=== PATIENT | female | born 1970 | race Caucasian/White ===

== ENCOUNTER 2017-02-15 16:00 | Emergency (ER) | payer BC ==
[2017-02-15 16:20] VITALS: BP 150/92
--- NOTE | 2017-02-15 18:53 | ED ---
blanka Tello Timothy, scribed for Adolfo Hensley MD on 02/15/17 at 1647 . Lower Extremity - HPI Summary HPI Summary: Ct Duke is a 46 yo female presenting to [facility] with 5/110 pain in her right leg, possibly a varicose vein rupture. She states she was going to the bathroom at 1500 when she realized that her pants were soaked with blood, and her leg was spurting blood. She has a pressure dressing on the area currently. her MHx includes hashimotos, cardiac ablation 2005, right leg nerve damage, asthma, bronchitis, cholecystectomy, fractures, claustrophobia. - History of Current Complaint Chief Complaint: EDExtremityLower Stated Complaint: LEG INJURY Time Seen by Provider: 02/15/17 16:34 Hx Obtained From: Patient Hx Last Menstrual Period: 02/28/15 Mechanism Of Injury: Unknown Onset of Pain: Immediate Onset/Duration: Minutes Severity Initially: Moderate Severity Currently: Moderate Pain Intensity: 5 Pain Scale Used: 0-10 Numeric Timing: Constant Location: Is Discrete @ - RLE Associated Signs And Symptoms: Positive: Other - bleeding - Allergies/Home Medications Allergies/Adverse Reactions: Allergies Allergy/AdvReac Type Severity Reaction Status Date / Time Latex Allergy Severe Anaphylatic Verified 03/10/16 09:03 Shock Morphine Allergy Intermediate Vomiting Verified 03/10/16 09:03 Penicillins Allergy Intermediate Rash Verified 03/10/16 09:03 EMLACREAM Allergy Severe LIP Uncoded 11/19/14 19:35 SWELLING CHLOROHEXADINE Allergy Intermediate Rash Uncoded 03/01/15 14:45 PMH/Surg Hx/FS Hx/Imm Hx Endocrine/Hematology History: Reports: Hx Thyroid Disease - hashimotos Denies: Hx Anticoagulant Therapy, Hx Diabetes, Hx Systemic Lupus Erythematosus, Other Endocrine/Hematological Disorders Cardiovascular History: Reports: Other Cardiovascular Problems/Disorders - SVT/ [id number] Denies: Hx Congestive Heart Failure, Hx Hypertension, Hx Pacemaker/ICD Respiratory History: Reports: Hx Asthma - Hx OF, INHALER IF SEASONS Denies: Other Respiratory Problems/Disorders - DENIES GI History: Denies: Other GI Disorders - HX NICOLE, GASTRIC BYPASS History: Denies: Hx Dialysis, Hx Renal Disease, Other Problems/Disorders Musculoskeletal History: Reports: Hx Back Problems, Other Musculoskeletal History - Back Surgeries/f/u with Dr. Ghosh Denies: Hx Rheumatoid Arthritis Sensory History: Reports: Hx Contacts or Glasses - GLASSES DAY OF SURGERY Denies: Hx Hearing Aid, Other Sensory Impairments Opthamlomology History: Reports: Hx Contacts or Glasses - GLASSES DAY OF SURGERY Denies: Other Sensory Impairments Neurological History: Reports: Hx Headaches - DAILY, Hx Nerve Disease - RT LEG NERVE DAMAGE Denies: Other Neuro Impairments/Disorders Psychiatric History: Denies: Hx Panic Disorder, Other Psychiatric Issues/Disorders - Cancer History Hx Chemotherapy: No - Surgical History Surgery Procedure, Year, and Place: 2009 GASTRIC BYPASS, [facility] [place]/2010 DISCECTOMY L4 ,[id number] GALLBLADDER,[id number] & 2009 REEL RECORDER 2008 ( NOT IN USE)-LOOP RECORDER [facility]-removal of benign mass in uterus Hx Anesthesia Reactions: No Infectious Disease History: No Infectious Disease History: Denies: Hx Clostridium Difficile, Hx Hepatitis, Hx Human Immunodeficiency Virus (HIV), Hx of Known/Suspected MRSA, Hx Shingles, Hx Tuberculosis, Hx Known/ Suspected VRE, Hx Known/Suspected VRSA, History Other Infectious Disease, Traveled Outside the in Last 30 Days - Social History Alcohol Use: None Substance Use Type: Reports: None Hx Tobacco Use: No Smoking Status (MU): Never Smoked Tobacco Have You Smoked in the Last Year: No Review of Systems Constitutional: Negative Eyes: Negative ENT: Negative Cardiovascular: Negative Respiratory: Negative Gastrointestinal: Negative Genitourinary: Negative Musculoskeletal: Other - bleeding from RLE with 5/10 pain Skin: Negative Neurological: Negative Psychological: Normal All Other Systems Reviewed And Are Negative: Yes Physical Exam - Summary Physical Exam Summary: VITAL SIGNS: Reviewed. GENERAL: Patient is a well-developed and obese female who is lying comfortable in the stretcher. Patient is not in any acute respiratory distress. HEAD AND FACE: No signs of trauma. No ecchymosis, hematomas or skull depressions. No sinus tenderness. EYES: PERRLA, EOMI x 2, No injected conjunctiva, no nystagmus. EARS: Hearing grossly intact. Ear canals and tympanic membranes are within normal limits. MOUTH: Oropharynx within normal limits. NECK: Supple, trachea is midline, no adenopathy, no JVD, no carotid bruit, no c- spine tenderness, neck with full ROM. CHEST: Symmetric, no tenderness at palpation LUNGS: Clear to auscultation bilaterally. No wheezing or crackles. CVS: Regular rate and rhythm, S1 and S2 present, no murmurs or gallops appreciated. ABDOMEN: Soft, non-tender. No signs of distention. No rebound no guarding, and no masses palpated. Bowel sounds are normal. EXTREMITIES: FROM in all major joints, no edema, no cyanosis or clubbing. NEURO: Alert and oriented x 3. No acute neurological deficits. Speech is normal and follows commands. SKIN: Dry and warm. There was a small varicose vein bleed on the RLE, but there is no active bleeding at this time. Multiple varicose veins in the bilateral lower extremities. There is no edema. Triage Information Reviewed: Yes Vital Signs On Initial Exam: Initial Vitals Temp Pulse Resp BP Pulse Ox 97.8 F 80 20 150/92 100 02/15/17 16:15 02/15/17 16:15 02/15/17 16:15 02/15/17 16:15 02/15/17 16:15 Vital Signs Reviewed: Yes Procedures - Procedure Summary Procedure Summary: Small varicose vein bleed, but at this time there is no active bleeding. I used surgicel with gauze and marisol bandage to bandage area. Pt tolerated procedure with no complaints. Diagnostics - Vital Signs Vital Signs Temp Pulse Resp BP Pulse Ox 02/15/17 16:15 97.8 F 80 20 150/92 100 - Laboratory Lab Statement: Any lab studies that have been ordered have been reviewed, and results considered in the medical decision making process. Re-Evaluation - Re-Evaluation First Eval Re-Evaluation Time: 16:50 Change: Unchanged Comment: Applied bandage to ruptured varicose vein. Second Eval Re-Evaluation Time: 17:34 Change: Unchanged Comment: Pt is still no longer bleeding, and is agreeable to be discharged. Lower Extremity Course/Dx - Course Assessment/Plan: Ct Duke is a 46 yo female presenting to [facility] with gushing blood and 5/10 pain from her RLE, possibly a varicose vein rupture. After clinical examination and application of a bandage, she will be discharged home with varicose vein bleed with appropriate instructions. The Pt is not having active bleeding at this point. I placed surgicel and bandage. Pt was observed for approximately 2 hours, and will be discharged with follow up from her PCP. Pt is A&Ox3 and hemodynamically stable. I discussed all the findings and test results with the patient. Patient was instructed to return to the emergency room immediately if any of the symptoms return or worsens. Plan of care was discussed with the patient and understands and agrees. All questions were answered at patient satisfaction. There were no further complaints or concerns. Lung exam before discharge: CTA B/L. Good air exchange. No wheezing or crackles heard. CVS: S1 and S2 present. No murmurs appreciated. Patient is alert and oriented x 3. Patient is hemodynamically stable. Patient will be discharged home with follow up PCP in the next 2-3 days - Diagnoses Differential Diagnosis/HQI/PQRI: Positive: Other - varicose vein rupture Provider Diagnoses: Bleeding from varicose vein Discharge - Discharge Plan Condition: Stable Disposition: HOME Patient Education Materials: Varicose Veins (ED) Forms: *Work Release Referrals: Tonia Travis MD [Primary Care Provider] - 2 Days Additional Instructions: Please follow up with you primary care physician regarding your visit to the emergency department today. Return to the emergency department with any new or recurring symptoms. The documentation as recorded by the blanka jensen Timothy accurately reflects the service I personally performed and the decisions made by me, Adolfo Hensley MD.
== END 2017-02-15 18:00 | disposition home or self-care (01) ==
LOC: ED 16:00
DX: I83.90 Asymptomatic varicose veins of unspecified lower extremity (principal); M79.604 Pain in right leg
CPT/HCPCS: 99282

== ENCOUNTER 2020-12-17 07:30 | Inpatient (IN) ==
[2020-12-31] MEDS ORDERED: Vancomycin 1,000 MG in NS 0.9% 250 ml 250 ML IVPB SCH
[2020-12-31] MEDS ORDERED: Lactated Ringers 1000 ml BAG 1,000 ML IV SCH (06:00)
[2020-12-31] MEDS ORDERED: Propofol 10 mg/ml 100 ML BTL 100 ML ONE ×2 (06:50→12:01)
[2020-12-31] MEDS ORDERED: Dexamethasone IV 4 MG/ML VIAL 1 ml VIAL ONE (07:08)
[2020-12-31] MEDS ORDERED: fentaNYL 250 mcg/5 ml 50 MCG/ML 5 ml VIAL (250 MCG) ONE (07:08)
[2020-12-31] MEDS ORDERED: Midazolam 2 mg/2 ml VIAL 1 mg/ml 2 ml VIAL (2 mg) ONE ×2 (07:08→08:28)
[2020-12-31] MEDS ORDERED: Ondansetron 4 mg VIAL 2 MG/ML 2 ml VIAL ONE (07:08)
[2020-12-31] MEDS ORDERED: Remifentanil 2 MG VIAL ONE ×3 (07:08→12:25)
[2020-12-31] MEDS ORDERED: Propofol 10 MG/ML 20 ML BTL ONE ×2 (07:08→13:49)
[2020-12-31] MEDS ORDERED: Phenylephrine IV 10 MG/ML 1 ml VIAL ONE (07:08)
[2020-12-31] MEDS ORDERED: Lidocaine 2% PF 5 ML VIAL ONE (07:08)
[2020-12-31] MEDS ORDERED: Succinylcholine 200 mg VIAL 20 mg/ml 10 ml VIAL (200 mg) ONE (07:08)
[2020-12-31] MEDS ORDERED: Bacitracin INJECTION (manuf dc) 50,000 UNITS ONE (07:14)
[2020-12-31] MEDS ORDERED: Rocuronium 50 mg VIAL 10 mg/ml 5 ml VIAL (50 mg) ONE (08:28)
[2020-12-31] MEDS ORDERED: Bupivacaine 0.25% SDV 30 ML ONE (08:28)
[2020-12-31] MEDS ORDERED: Lidocaine 1% VIAL 10 MG/ML VIAL ONE (08:50)
[2020-12-31] MEDS ORDERED: Propofol 10 mg/ml 100 ML BTL 200 ML ONE (08:53)
[2020-12-31] MEDS ORDERED: BUPIVACAINE **LIPOSOME/PF 13.3 MG/ML (266MG/ 20ML) VIAL (RESTRICTED) INFIL ONE (09:00)
[2020-12-31] MEDS ORDERED: DiMENhydriNATE IV 50 mg/ml 1 ml VIAL IV PUSH PRN (09:13)
[2020-12-31] MEDS ORDERED: Naloxone 0.4 mg VIAL 0.4 mg/ml 1 ml VIAL IV PRN (09:13)
[2020-12-31] MEDS ORDERED: HYDROmorphone 1 MG/1 ML SYRINGE ONE ×3 (12:48→14:49)
[2020-12-31] MEDS ORDERED: Acetaminophen IV 1 GM/100ML 100 ML ONE (13:29)
[2020-12-31] MEDS ORDERED: Magnesium Hydroxide LIQ 30 ML UDC PO PRN (14:23)
[2020-12-31] MEDS: HYDROmorphone 1 MG/1 ML SYRINGE IV PRN ×5 (14:53→16:36)
[2020-12-31] MEDS ORDERED: fentaNYL PATCH 75 MCG/HR 1 PATCH TRANSDERM SCH (15:00)
[2020-12-31] MEDS: fentaNYL PATCH 100 MCG/HR 1 PATCH TRANSDERM SCH ×2 (17:18→18:50)
[2020-12-31] MEDS: fentaNYL Patch Check Q Shift NOTE FOLLOW UP SCH (20:28)
[2021-01-01] MEDS: fentaNYL Patch Check Q Shift NOTE FOLLOW UP SCH ×3 (06:50→19:23)
[2021-01-01] MEDS: DULoxetine DR 60 mg CAP PO SCH (12:37)
[2021-01-01] MEDS ORDERED: Albuterol HFA INHALER 8 gm MDI INH PRN (14:41)
[2021-01-01] MEDS: Ondansetron 4 mg VIAL 2 MG/ML 2 ml VIAL IV PRN (20:55)
[2021-01-01] MEDS: Dexamethasone IV 4 MG/ML VIAL 1 ml VIAL IV SLOW PU SCH (21:58)
[2021-01-01] MEDS: Acetaminophen IV 1 GM/100ML 100 ML IVPB SCH (22:25)
[2021-01-02] MEDS: Dexamethasone IV 4 MG/ML VIAL 1 ml VIAL IV SLOW PU SCH ×2 (05:38→14:03)
[2021-01-02] MEDS: Acetaminophen IV 1 GM/100ML 100 ML IVPB SCH ×2 (05:39→14:07)
[2021-01-02] MEDS: fentaNYL Patch Check Q Shift NOTE FOLLOW UP SCH ×2 (07:04→19:21)
[2021-01-02] MEDS: DULoxetine DR 60 mg CAP PO SCH (12:38)
[2021-01-03] MEDS: fentaNYL Patch Check Q Shift NOTE FOLLOW UP SCH ×2 (06:54→18:50)
[2021-01-03] MEDS: DULoxetine DR 60 mg CAP PO SCH (12:06)
[2021-01-03] MEDS: fentaNYL PATCH 100 MCG/HR 1 PATCH TRANSDERM SCH (16:14)
[2021-01-03 16:33] LABS: BUN/Creatinine Ratio 33.3 (8-20); Calcium 8.2 mg/dL (8.6-10.3); EGFR African American 80.2 (>60); EGFR Non-African American 66.3 (>60); Magnesium 1.8 mg/dL (1.9-2.7); Potassium 3.7 mmol/L (3.5-5.0)
[2021-01-04] MEDS: Ondansetron 4 mg VIAL 2 MG/ML 2 ml VIAL IV PRN (01:41)
[2021-01-04] MEDS: fentaNYL Patch Check Q Shift NOTE FOLLOW UP SCH ×2 (06:52→19:05)
[2021-01-04] MEDS: DULoxetine DR 60 mg CAP PO SCH (11:54)
[2021-01-05] MEDS: fentaNYL Patch Check Q Shift NOTE FOLLOW UP SCH ×2 (07:20→19:12)
[2021-01-05] MEDS: DULoxetine DR 60 mg CAP PO SCH (12:31)
[2021-01-05] MEDS: Ondansetron 4 mg VIAL 2 MG/ML 2 ml VIAL IV PRN (18:01)
[2021-01-06] MEDS ORDERED: Ondansetron ODT 4 mg TAB 4 MG TAB PO PRN (00:07)
[2021-01-06] MEDS: fentaNYL Patch Check Q Shift NOTE FOLLOW UP SCH ×2 (07:14→19:16)
[2021-01-06] MEDS: DULoxetine DR 60 mg CAP PO SCH (12:01)
[2021-01-06] MEDS: fentaNYL PATCH 100 MCG/HR 1 PATCH TRANSDERM SCH (16:28)
[2021-01-07] MEDS: fentaNYL Patch Check Q Shift NOTE FOLLOW UP SCH ×3 (07:25→19:09)
[2021-01-07] MEDS ORDERED: Gadoteridol (CONTRAST) 279.3 MG/ML 10 ML IV ONE (13:52)
[2021-01-07] MEDS: DULoxetine DR 60 mg CAP PO SCH (14:36)
[2021-01-07] MEDS ORDERED: Ondansetron 4 mg VIAL 2 MG/ML 2 ml VIAL ONE (15:19)
[2021-01-07] MEDS ORDERED: Prochlorperazine 5 mg/ml 2 ml VIAL (10 mg) IV PRN (15:24)
[2021-01-07] MEDS ORDERED: fentaNYL PATCH 100 MCG/HR 1 PATCH TRANSDERM SCH (18:00)
[2021-01-08] MEDS: fentaNYL Patch Check Q Shift NOTE FOLLOW UP SCH (07:06)
[2021-01-08 07:30] VITALS: BP 114/67
[2021-01-09] MEDS ORDERED: fentaNYL PATCH 100 MCG/HR 1 PATCH TRANSDERM SCH (17:00)
== END 2021-01-08 09:45 | DRG 304 ==
LOC: AA 12-31 05:53 → SSU 12-31 14:23
PROVIDERS: ADMIT Neurological Surgery; ATTEND Neurological Surgery

== ENCOUNTER 2021-12-14 13:27 | Inpatient (IN) ==
[2021-12-14] MEDS ORDERED: Lorazepam PYXIS KEY PRN (13:39)
[2021-12-14] MEDS ORDERED: LORazepam 2 mg VIAL 1 ml IV PUSH ONE (13:39)
[2021-12-14] MEDS ORDERED: Furosemide 40 mg/4 ml IV VIAL IV ONE (13:40)
[2021-12-14 14:46] LABS: ABS Basophils 0.1 10^3/ul (0-0.2); ABS Eosinophils 0.1 10^3/ul (0-0.6); ABS Lymphocytes 2.2 10^3/ul (1.0-4.8); ABS Monocytes 0.7 10^3/ul (0-0.8); ABS Neutrophils 6.7 10^3/ul (1.5-7.7); Eosinophil % 0.9 %; Hematocrit 31 % (35-47); Hemoglobin 9.8 g/dL (12.0-16.0); Lymphocyte % 22.2 %; Mean Corpuscular HGB Conc 32 g/dL (31-36); Mean Corpuscular Hemoglobin 22 pg (27-31); Mean Corpuscular Volume 71 fL (80-97); Mean Platelet Volume 6.8 fL (7.4-10.4); Platelet Count 521 10^3/uL (150-450); Red Blood Count 4.37 10^6 /uL (3.70-4.87); Red Cell Distribution Width 19 % (10-15); White Blood Count 9.7 10^3/uL (3.5-10.8)
[2021-12-14 14:51] LABS: Activated Partial Thrombo Time 35.6 seconds (26.0-38.0); INR 0.85 (0.86-1.15)
[2021-12-14 15:19] LABS: Albumin 2.7 g/dL (3.2-5.2); Albumin/Globulin Ratio 1.4 (1-3); Calcium 7.9 mg/dL (8.6-10.3); Globulin 1.9 g/dL (2-4); Magnesium 2.7 mg/dL (1.9-2.7); Potassium 3.9 mmol/L (3.5-5.0); Total Bilirubin 0.5 mg/dL (0.2-1.0); Total Protein 4.6 g/dL (6.4-8.9); eGFR CKD-EPI 70.7 (>60)
[2021-12-14 15:32] LABS: TSH Ultra Thyroid Stim Horm 2.37 mcIU/mL (0.34-5.60)
[2021-12-14 16:11] LABS: High Sensitivity Troponin 1 Hr 6 pg/mL (<15)
[2021-12-14 16:40] LABS: Urine Appearance Clear; Urine Bilirubin Negative (Negative); Urine Blood Negative (Negative); Urine Color Yellow; Urine Glucose Negative (Negative); Urine Ketones Negative (Negative); Urine Nitrite Negative (Negative); Urine Protein Negative (Negative); Urine Specific Gravity 1.006 (1.002-1.030); Urine Urobilinogen Negative (Negative)
[2021-12-14 16:45] LABS: C Reactive Protein 10.44 mg/L (<8.01)
[2021-12-14] MEDS ORDERED: Albuterol HFA INHALER 8 gm MDI INH PRN (17:48)
[2021-12-14] MEDS ORDERED: fentaNYL PATCH 100 MCG/HR 1 PATCH TRANSDERM SCH ×3 (18:00→21:19)
[2021-12-14 18:10] LABS: PCO2 Arterial 33 mmHg (35-45); PO2 Arterial 93 mmHg (80-100)
[2021-12-14] MEDS: Enoxaparin 40 MG/0.4 ML SYR SUBCUT SCH (18:41)
[2021-12-14] MEDS ORDERED: HYDROmorphone 8mg TAB (NF) PO PRN (18:43)
[2021-12-14] MEDS ORDERED: PREGABALIN 75 MG PO SCH (21:00)
[2021-12-14] MEDS ORDERED: Iohexol 350 (CONTRAST) 500 ML MDV IV ONE (21:13)
[2021-12-14] MEDS: HYDROmorphone 8mg TAB (NF) PO PRN (23:19)
[2021-12-15 06:12] LABS: Calcium 7.7 mg/dL (8.6-10.3); Magnesium 2.1 mg/dL (1.9-2.7); Potassium 3.2 mmol/L (3.5-5.0); eGFR CKD-EPI 62.9 (>60)
[2021-12-15 06:18] LABS: ABS Basophils 0.1 10^3/ul (0-0.2); ABS Eosinophils 0.3 10^3/ul (0-0.6); ABS Lymphocytes 2.2 10^3/ul (1.0-4.8); ABS Monocytes 0.7 10^3/ul (0-0.8); Eosinophil % 3.1 %; Hematocrit 32 % (35-47); Hemoglobin 9.8 g/dL (12.0-16.0); Lymphocyte % 23.5 %; Mean Corpuscular HGB Conc 31 g/dL (31-36); Mean Corpuscular Hemoglobin 22 pg (27-31); Mean Corpuscular Volume 73 fL (80-97); Mean Platelet Volume 7.1 fL (7.4-10.4); Platelet Count 445 10^3/uL (150-450); Red Blood Count 4.36 10^6 /uL (3.70-4.87); Red Cell Distribution Width 19 % (10-15); White Blood Count 9.2 10^3/uL (3.5-10.8)
[2021-12-15 07:06] LABS: Albumin 2.5 g/dL (3.2-5.2); Albumin/Globulin Ratio 1.5 (1-3); Direct Bilirubin 0.1 mg/dL (0.03-0.18); Globulin 1.7 g/dL (2-4); Indirect Bilirubin 0.2 mg/dL (0.3-1.0); Total Bilirubin 0.3 mg/dL (0.2-1.0); Total Protein 4.2 g/dL (6.4-8.9)
[2021-12-15] MEDS: fentaNYL Patch Check Q Shift NOTE FOLLOW UP SCH ×2 (07:12→19:12)
[2021-12-15] MEDS: HYDROmorphone 8mg TAB (NF) PO PRN ×2 (07:44→20:19)
[2021-12-15] MEDS: DULoxetine DR 30 mg CAP PO SCH (07:50)
[2021-12-15] MEDS: DULoxetine DR 60 mg CAP PO SCH (07:50)
[2021-12-15] MEDS ORDERED: Potassium Chlor 20 meq TAB.ER PO ONE (10:23)
[2021-12-15 16:24] LABS: Free T3 3.3 pg/mL (2.5-3.9)
[2021-12-15 16:29] LABS: Free T4 0.92 ng/dL (0.61-1.12)
[2021-12-15] MEDS: Enoxaparin 40 MG/0.4 ML SYR SUBCUT SCH (20:22)
[2021-12-16] MEDS: HYDROmorphone 8mg TAB (NF) PO PRN ×3 (05:10→20:39)
[2021-12-16 06:00] LABS: ABS Eosinophils 0.3 10^3/ul (0-0.6); ABS Lymphocytes 1.8 10^3/ul (1.0-4.8); ABS Monocytes 0.5 10^3/ul (0-0.8); ABS Neutrophils 3.1 10^3/ul (1.5-7.7); Hematocrit 28 % (35-47); Hemoglobin 8.6 g/dL (12.0-16.0); Lymphocyte % 31.6 %; Mean Corpuscular HGB Conc 31 g/dL (31-36); Mean Corpuscular Hemoglobin 23 pg (27-31); Mean Corpuscular Volume 72 fL (80-97); Mean Platelet Volume 6.8 fL (7.4-10.4); Platelet Count 398 10^3/uL (150-450); Red Blood Count 3.84 10^6 /uL (3.70-4.87); Red Cell Distribution Width 19 % (10-15); White Blood Count 5.8 10^3/uL (3.5-10.8)
[2021-12-16 06:15] LABS: Calcium 7.8 mg/dL (8.6-10.3); Magnesium 1.8 mg/dL (1.9-2.7); Potassium 4.2 mmol/L (3.5-5.0); eGFR CKD-EPI 93.3 (>60)
[2021-12-16] MEDS: fentaNYL Patch Check Q Shift NOTE FOLLOW UP SCH ×2 (07:16→19:08)
[2021-12-16] MEDS ORDERED: Regadenoson 0.4 MG/5 ML SYRINGE ONE (08:43)
[2021-12-16] MEDS ORDERED: Aminophylline 25 MG/ML VIAL ONE (08:49)
[2021-12-16] MEDS ORDERED: Magnesium Sulfate 2 gm BAG 2 GM/50 ML BAG IVPB ONE (11:57)
[2021-12-16] MEDS ORDERED: Furosemide 40 mg/4 ml IV VIAL IV ONE (11:57)
[2021-12-16] MEDS: DULoxetine DR 30 mg CAP PO SCH (12:04)
[2021-12-16] MEDS: DULoxetine DR 60 mg CAP PO SCH (12:04)
[2021-12-16] MEDS: Enoxaparin 40 MG/0.4 ML SYR SUBCUT SCH (18:28)
[2021-12-17] MEDS: HYDROmorphone 8mg TAB (NF) PO PRN (06:13)
[2021-12-17 06:19] LABS: ABS Eosinophils 0.2 10^3/ul (0-0.6); ABS Lymphocytes 1.3 10^3/ul (1.0-4.8); ABS Monocytes 0.5 10^3/ul (0-0.8); ABS Neutrophils 4.1 10^3/ul (1.5-7.7); Eosinophil % 3.8 %; Hematocrit 27 % (35-47); Hemoglobin 8.3 g/dL (12.0-16.0); Lymphocyte % 20.8 %; Mean Corpuscular HGB Conc 31 g/dL (31-36); Mean Corpuscular Hemoglobin 22 pg (27-31); Mean Corpuscular Volume 72 fL (80-97); Mean Platelet Volume 6.9 fL (7.4-10.4); Platelet Count 435 10^3/uL (150-450); Red Blood Count 3.78 10^6 /uL (3.70-4.87); Red Cell Distribution Width 19 % (10-15); White Blood Count 6.1 10^3/uL (3.5-10.8)
[2021-12-17 06:27] LABS: Calcium 7.9 mg/dL (8.6-10.3); Magnesium 1.9 mg/dL (1.9-2.7); Potassium 4.3 mmol/L (3.5-5.0); eGFR CKD-EPI 96.3 (>60)
[2021-12-17] MEDS: fentaNYL Patch Check Q Shift NOTE FOLLOW UP SCH (07:02)
[2021-12-17] MEDS: DULoxetine DR 60 mg CAP PO SCH (08:57)
[2021-12-17] MEDS: DULoxetine DR 30 mg CAP PO SCH (08:57)
[2021-12-17 11:33] LABS: Ferritin 9.3 ng/mL (11-307)
[2021-12-17] MEDS ORDERED: Iron Sucrose 200 MG in NS 0.9% 100 ml BAG 100 ML IVPB ONE (13:00)
[2021-12-17 17:17] VITALS: BP 115/68
== END 2021-12-17 18:38 | disposition home or self-care (01) | DRG 144 ==
LOC: ED 13:27 → EDHOLD 13:27 → SUATTDRO 17:42 → MEDTELE 21:12
PROVIDERS: ADMIT Internal Medicine; ATTEND Hospitalist

== ENCOUNTER 2022-01-10 16:58 | Inpatient (IN) ==
[2022-01-10 23:46] LABS: Urine Appearance Cloudy; Urine Bilirubin Negative (Negative); Urine Blood Negative (Negative); Urine Color Yellow; Urine Glucose Negative (Negative); Urine Ketones Negative (Negative); Urine Nitrite Positive (Negative); Urine Protein Negative (Negative); Urine Specific Gravity 1.012 (1.002-1.030); Urine Urobilinogen Negative (Negative)
[2022-01-11 00:17] LABS: ABS Lymphocytes 1.6 10^3/ul (1.0-4.8); ABS Monocytes 0.8 10^3/ul (0-0.8); ABS Neutrophils 6.9 10^3/ul (1.5-7.7); Eosinophil % 0.4 %; Hematocrit 30 % (35-47); Hemoglobin 9.2 g/dL (12.0-16.0); Mean Corpuscular HGB Conc 31 g/dL (31-36); Mean Corpuscular Hemoglobin 23 pg (27-31); Mean Corpuscular Volume 74 fL (80-97); Mean Platelet Volume 7.2 fL (7.4-10.4); Nucleated Red Blood Cells % 0.1; Platelet Count 378 10^3/uL (150-450); Red Blood Count 4.02 10^6 /uL (3.70-4.87); Red Cell Distribution Width 20 % (10-15); White Blood Count 9.3 10^3/uL (3.5-10.8)
[2022-01-11 00:22] LABS: Urine Bacteria Absent (Absent); Urine Red Blood Cell Trace(0-2/hpf) (Absent); Urine White Blood Cell 2+(11-20/hpf) (Absent)
[2022-01-11 00:43] LABS: Albumin 2.2 g/dL (3.2-5.2); Albumin/Globulin Ratio 1.1 (1-3); Calcium 7.7 mg/dL (8.6-10.3); Potassium 3.5 mmol/L (3.5-5.0); Total Bilirubin 0.8 mg/dL (0.2-1.0); Total Protein 4.2 g/dL (6.4-8.9); eGFR CKD-EPI 76.4 (>60)
[2022-01-11] MEDS ORDERED: Enoxaparin 40 MG/0.4 ML SYR SUBCUT SCH (03:00)
[2022-01-11] MEDS ORDERED: Furosemide 40 mg/4 ml IV VIAL IV SLOW PU ONE (03:03)
[2022-01-11] MEDS ORDERED: Ondansetron ODT 4 mg TAB 4 MG TAB PO PRN (03:52)
[2022-01-11] MEDS ORDERED: Albuterol HFA INHALER 8 gm MDI INH PRN (03:52)
[2022-01-11 07:09] LABS: ABS Lymphocytes 1.8 10^3/ul (1.0-4.8); ABS Neutrophils 7.1 10^3/ul (1.5-7.7); Eosinophil % 0.3 %; Hematocrit 31 % (35-47); Hemoglobin 9.5 g/dL (12.0-16.0); Lymphocyte % 18.3 %; Mean Corpuscular HGB Conc 31 g/dL (31-36); Mean Corpuscular Hemoglobin 23 pg (27-31); Mean Corpuscular Volume 74 fL (80-97); Mean Platelet Volume 7.3 fL (7.4-10.4); Platelet Count 380 10^3/uL (150-450); Red Cell Distribution Width 19 % (10-15)
[2022-01-11 07:15] LABS: Calcium 7.6 mg/dL (8.6-10.3); Potassium 3.4 mmol/L (3.5-5.0); eGFR CKD-EPI 64.3 (>60)
[2022-01-11] MEDS: Calcium Citrate 200 mg TAB PO SCH ×3 (09:14→21:53)
[2022-01-11] MEDS: fentaNYL PATCH 100 MCG/HR 1 PATCH TRANSDERM SCH (09:18)
[2022-01-11 10:35] LABS: Vitamin D Total 25(OH) 52.7 ng/mL (20-50)
[2022-01-11 14:53] LABS: Urine Osmo 274 mOsm/kg (150-1150)
[2022-01-11] MEDS: Heparin DRIP 25,000 UNITS BAG 25,000 UNITS/500 ML BAG IV SCH (15:52)
[2022-01-11] MEDS: Heparin 5000 UNITS/ML 1 mL VIAL IV PRN (15:53)
[2022-01-11 19:22] LABS: Phosphorus 3.5 mg/dL (2.5-5.0)
[2022-01-11] MEDS: fentaNYL Patch Check Q Shift NOTE FOLLOW UP SCH (19:34)
[2022-01-11] MEDS ORDERED: PREGABALIN 75 MG PO SCH (21:00)
[2022-01-12 04:02] LABS: Hematocrit 28 % (35-47); Hemoglobin 8.8 g/dL (12.0-16.0); Mean Corpuscular HGB Conc 32 g/dL (31-36); Mean Corpuscular Hemoglobin 23 pg (27-31); Mean Corpuscular Volume 74 fL (80-97); Mean Platelet Volume 7.1 fL (7.4-10.4); Platelet Count 365 10^3/uL (150-450); Red Blood Count 3.76 10^6 /uL (3.70-4.87); Red Cell Distribution Width 20 % (10-15); White Blood Count 7.2 10^3/uL (3.5-10.8)
[2022-01-12 04:36] LABS: Calcium 7.3 mg/dL (8.6-10.3); Magnesium 1.6 mg/dL (1.9-2.7); Potassium 3.4 mmol/L (3.5-5.0)
[2022-01-12 06:01] LABS: ABS Lymphocytes 1.8 10^3/ul (1.0-4.8); ABS Monocytes 0.7 10^3/ul (0-0.8); ABS Neutrophils 4.6 10^3/ul (1.5-7.7); Eosinophil % 0.7 %; Lymphocyte % 24.6 %
[2022-01-12] MEDS: fentaNYL Patch Check Q Shift NOTE FOLLOW UP SCH ×2 (06:50→19:20)
[2022-01-12] MEDS ORDERED: Magnesium Sulfate 2 gm BAG 2 GM/50 ML BAG IV ONE (08:00)
[2022-01-12] MEDS: Calcium Citrate 200 mg TAB PO SCH ×3 (08:56→21:08)
[2022-01-12] MEDS ORDERED: Magnesium Sulfate 1 GM IV 1 GM/100 ML BAG IV ONE (09:30)
[2022-01-12] MEDS: Heparin DRIP 25,000 UNITS BAG 25,000 UNITS/500 ML BAG IV SCH (10:35)
[2022-01-12 13:51] LABS: Folate > 20.00 ng/mL (5.90-24.80)
[2022-01-12 13:52] LABS: Vitamin B12 488 pg/mL (180-914)
[2022-01-12] MEDS: Ondansetron 4 mg VIAL 2 MG/ML 2 ml VIAL IV PRN (15:49)
[2022-01-13 05:54] LABS: ABS Eosinophils 0.1 10^3/ul (0-0.6); ABS Lymphocytes 3.2 10^3/ul (1.0-4.8); ABS Monocytes 0.5 10^3/ul (0-0.8); Hematocrit 32 % (35-47); Lymphocyte % 40.9 %; Mean Corpuscular HGB Conc 31 g/dL (31-36); Mean Corpuscular Hemoglobin 24 pg (27-31); Mean Corpuscular Volume 75 fL (80-97); Mean Platelet Volume 7.3 fL (7.4-10.4); Nucleated Red Blood Cells % 0.1; Platelet Count 502 10^3/uL (150-450); Red Blood Count 4.28 10^6 /uL (3.70-4.87); Red Cell Distribution Width 20 % (10-15); White Blood Count 7.9 10^3/uL (3.5-10.8)
[2022-01-13 06:10] LABS: Calcium 7.9 mg/dL (8.6-10.3); Magnesium 2.1 mg/dL (1.9-2.7); eGFR CKD-EPI 67.4 (>60)
[2022-01-13] MEDS: Heparin DRIP 25,000 UNITS BAG 25,000 UNITS/500 ML BAG IV SCH (07:00)
[2022-01-13] MEDS: fentaNYL Patch Check Q Shift NOTE FOLLOW UP SCH ×2 (07:01→18:44)
[2022-01-13] MEDS: Calcium Citrate 200 mg TAB PO SCH ×3 (07:48→21:04)
[2022-01-13] MEDS ORDERED: Gadoteridol (CONTRAST) 279.3 MG/ML 10 ML IV ONE (14:50)
[2022-01-13 17:21] LABS: TSH Ultra Thyroid Stim Horm 13.68 mcIU/mL (0.34-5.60)
[2022-01-13 19:20] LABS: Copper Level 0.56 mcg/mL (0.75-1.45)
[2022-01-14] MEDS: Heparin DRIP 25,000 UNITS BAG 25,000 UNITS/500 ML BAG IV SCH (04:58)
[2022-01-14 06:00] LABS: Calcium 7.8 mg/dL (8.6-10.3); Magnesium 1.9 mg/dL (1.9-2.7); Potassium 3.8 mmol/L (3.5-5.0)
[2022-01-14 06:06] LABS: eGFR CKD-EPI 74.4 (>60)
[2022-01-14] MEDS: fentaNYL Patch Check Q Shift NOTE FOLLOW UP SCH ×2 (06:48→18:40)
[2022-01-14] MEDS: Heparin 5000 UNITS/ML 1 mL VIAL IV PRN (06:52)
[2022-01-14] MEDS: Ondansetron 4 mg VIAL 2 MG/ML 2 ml VIAL IV PRN ×2 (08:15→21:17)
[2022-01-14] MEDS: Calcium Citrate 200 mg TAB PO SCH ×3 (09:09→21:15)
[2022-01-14] MEDS: fentaNYL PATCH 100 MCG/HR 1 PATCH TRANSDERM SCH (09:37)
[2022-01-14] MEDS ORDERED: Iron Sucrose 200 MG in NS 0.9% 100 ml BAG 100 ML IVPB ONE (15:33)
[2022-01-15] MEDS: Heparin DRIP 25,000 UNITS BAG 25,000 UNITS/500 ML BAG IV SCH (03:01)
[2022-01-15 03:41] LABS: Hematocrit 30 % (35-47); Hemoglobin 9.1 g/dL (12.0-16.0); Mean Corpuscular HGB Conc 31 g/dL (31-36); Mean Corpuscular Hemoglobin 23 pg (27-31); Mean Corpuscular Volume 75 fL (80-97); Mean Platelet Volume 6.7 fL (7.4-10.4); Platelet Count 445 10^3/uL (150-450); Red Blood Count 3.95 10^6 /uL (3.70-4.87); Red Cell Distribution Width 21 % (10-15)
[2022-01-15 04:02] LABS: Calcium 7.7 mg/dL (8.6-10.3); Magnesium 1.8 mg/dL (1.9-2.7); Potassium 4.1 mmol/L (3.5-5.0)
[2022-01-15 04:07] LABS: eGFR CKD-EPI 97.9 (>60)
[2022-01-15] MEDS: fentaNYL Patch Check Q Shift NOTE FOLLOW UP SCH ×2 (06:58→18:56)
[2022-01-15] MEDS ORDERED: Potassium Chlor 20 meq TAB.ER PO ONE (09:26)
[2022-01-15] MEDS ORDERED: Magnesium Sulfate 2 gm BAG 2 GM/50 ML BAG IVPB ONE (09:26)
[2022-01-15] MEDS: Calcium Citrate 200 mg TAB PO SCH ×3 (11:51→21:35)
[2022-01-15] MEDS: Ondansetron 4 mg VIAL 2 MG/ML 2 ml VIAL IV PRN ×2 (17:08→23:36)
[2022-01-16] MEDS: Heparin DRIP 25,000 UNITS BAG 25,000 UNITS/500 ML BAG IV SCH (04:09)
[2022-01-16 06:28] LABS: Hematocrit 31 % (35-47); Hemoglobin 9.4 g/dL (12.0-16.0); Mean Corpuscular HGB Conc 30 g/dL (31-36); Mean Corpuscular Hemoglobin 23 pg (27-31); Mean Corpuscular Volume 76 fL (80-97); Mean Platelet Volume 7.1 fL (7.4-10.4); Platelet Count 559 10^3/uL (150-450); Red Blood Count 4.09 10^6 /uL (3.70-4.87); Red Cell Distribution Width 21 % (10-15); White Blood Count 12.6 10^3/uL (3.5-10.8)
[2022-01-16 06:45] LABS: Calcium 7.8 mg/dL (8.6-10.3); Magnesium 1.9 mg/dL (1.9-2.7); Potassium 3.7 mmol/L (3.5-5.0); eGFR CKD-EPI 62.9 (>60)
[2022-01-16] MEDS: fentaNYL Patch Check Q Shift NOTE FOLLOW UP SCH ×2 (07:42→19:15)
[2022-01-16] MEDS ORDERED: Potassium Chlor 20 meq TAB.ER PO ONE (08:58)
[2022-01-16 08:59] LABS: ABS Lymphocytes 2.2 10^3/ul (1.0-4.8); ABS Monocytes 0.7 10^3/ul (0-0.8); ABS Neutrophils 9.5 10^3/ul (1.5-7.7); Eosinophil % 0.3 %; Lymphocyte % 17.9 %
[2022-01-16 09:10] LABS: C Reactive Protein 6.19 mg/L (<8.01)
[2022-01-16] MEDS: Calcium Citrate 200 mg TAB PO SCH ×3 (09:40→20:48)
[2022-01-16 11:22] LABS: Albumin 1.8 g/dL (3.4-4.7); Albumin/Globulin Ratio 0.77; Gamma Globulin 0.3 g/dL (0.6-1.6); Total Protein(PEP) 4.1 g/dL (6.3 - 7.9)
[2022-01-16] MEDS ORDERED: Iron Sucrose 200 MG in NS 0.9% 100 ml BAG 100 ML IVPB ONE (18:30)
[2022-01-16] MEDS: Ondansetron 4 mg VIAL 2 MG/ML 2 ml VIAL IV PRN (20:19)
[2022-01-17] MEDS: Heparin DRIP 25,000 UNITS BAG 25,000 UNITS/500 ML BAG IV SCH (05:25)
[2022-01-17] MEDS: fentaNYL Patch Check Q Shift NOTE FOLLOW UP SCH ×2 (06:44→18:43)
[2022-01-17 07:28] LABS: Hematocrit 31 % (35-47); Hemoglobin 9.6 g/dL (12.0-16.0); Mean Corpuscular HGB Conc 31 g/dL (31-36); Mean Corpuscular Hemoglobin 24 pg (27-31); Mean Corpuscular Volume 77 fL (80-97); Mean Platelet Volume 7.1 fL (7.4-10.4); Platelet Count 501 10^3/uL (150-450); Red Blood Count 4.01 10^6 /uL (3.70-4.87); Red Cell Distribution Width 21 % (10-15); White Blood Count 17.3 10^3/uL (3.5-10.8)
[2022-01-17 07:40] LABS: Calcium 7.9 mg/dL (8.6-10.3); Magnesium 1.7 mg/dL (1.9-2.7); Potassium 4.2 mmol/L (3.5-5.0); eGFR CKD-EPI 90.5 (>60)
[2022-01-17] MEDS: Calcium Citrate 200 mg TAB PO SCH ×3 (08:49→20:55)
[2022-01-17] MEDS: fentaNYL PATCH 100 MCG/HR 1 PATCH TRANSDERM SCH (09:05)
[2022-01-17] MEDS ORDERED: Magnesium Sulfate 2 gm BAG 2 GM/50 ML BAG IVPB ONE (16:43)
[2022-01-17] MEDS ORDERED: Iron Sucrose 200 MG in NS 0.9% 100 ml BAG 100 ML IVPB ONE (17:00)
[2022-01-18] MEDS: Heparin DRIP 25,000 UNITS BAG 25,000 UNITS/500 ML BAG IV SCH (05:49)
[2022-01-18 06:03] LABS: Hematocrit 26 % (35-47); Hemoglobin 8.2 g/dL (12.0-16.0); Mean Corpuscular HGB Conc 31 g/dL (31-36); Mean Corpuscular Hemoglobin 24 pg (27-31); Mean Corpuscular Volume 76 fL (80-97); Mean Platelet Volume 6.6 fL (7.4-10.4); Platelet Count 452 10^3/uL (150-450); Red Blood Count 3.46 10^6 /uL (3.70-4.87); Red Cell Distribution Width 21 % (10-15); White Blood Count 13.8 10^3/uL (3.5-10.8)
[2022-01-18 06:32] LABS: Calcium 7.4 mg/dL (8.6-10.3); Potassium 3.7 mmol/L (3.5-5.0); eGFR CKD-EPI 105.8 (>60)
[2022-01-18] MEDS: fentaNYL Patch Check Q Shift NOTE FOLLOW UP SCH ×2 (07:09→19:24)
[2022-01-18] MEDS: Calcium Citrate 200 mg TAB PO SCH ×3 (08:53→20:40)
[2022-01-18] MEDS ORDERED: Iron Sucrose 20 MG/ML 5 ML VIAL IV PUSH ONE (10:57)
[2022-01-18] MEDS ORDERED: Iron Sucrose 200 MG in NS 0.9% 100 ml IVPB ONE (18:00)
[2022-01-18] MEDS: Enoxaparin 80 MG/0.8 ML SYR SUBCUT SCH (19:41)
[2022-01-19 05:44] LABS: Hematocrit 30 % (35-47); Hemoglobin 9.4 g/dL (12.0-16.0); Mean Corpuscular HGB Conc 32 g/dL (31-36); Mean Corpuscular Hemoglobin 24 pg (27-31); Mean Corpuscular Volume 77 fL (80-97); Mean Platelet Volume 6.6 fL (7.4-10.4); Platelet Count 550 10^3/uL (150-450); Red Blood Count 3.88 10^6 /uL (3.70-4.87); Red Cell Distribution Width 22 % (10-15)
[2022-01-19] MEDS: Enoxaparin 80 MG/0.8 ML SYR SUBCUT SCH ×2 (06:09→19:06)
[2022-01-19 06:22] LABS: Calcium 7.6 mg/dL (8.6-10.3); Magnesium 1.8 mg/dL (1.9-2.7); Potassium 3.5 mmol/L (3.5-5.0); eGFR CKD-EPI 104.6 (>60)
[2022-01-19] MEDS: fentaNYL Patch Check Q Shift NOTE FOLLOW UP SCH ×2 (06:48→19:08)
[2022-01-19] MEDS: Calcium Citrate 200 mg TAB PO SCH ×3 (08:45→20:07)
[2022-01-19] MEDS ORDERED: Iron Sucrose 200 MG in NS 0.9% 100 ml BAG 100 ML IVPB ONE (14:45)
[2022-01-19 15:29] LABS: Zinc 0.45 mcg/mL (0.66-1.10)
[2022-01-19] MEDS ORDERED: Magnesium Sulfate 2 gm BAG 2 GM/50 ML BAG IVPB ONE (18:40)
[2022-01-20 05:29] LABS: Hematocrit 29 % (35-47); Hemoglobin 8.9 g/dL (12.0-16.0); Mean Corpuscular HGB Conc 31 g/dL (31-36); Mean Corpuscular Hemoglobin 24 pg (27-31); Mean Corpuscular Volume 78 fL (80-97); Mean Platelet Volume 6.6 fL (7.4-10.4); Platelet Count 582 10^3/uL (150-450); Red Blood Count 3.67 10^6 /uL (3.70-4.87); Red Cell Distribution Width 22 % (10-15); White Blood Count 9.9 10^3/uL (3.5-10.8)
[2022-01-20] MEDS: Enoxaparin 80 MG/0.8 ML SYR SUBCUT SCH ×2 (06:06→17:51)
[2022-01-20 06:08] LABS: Calcium 7.3 mg/dL (8.6-10.3); Magnesium 1.9 mg/dL (1.9-2.7); Potassium 3.9 mmol/L (3.5-5.0); eGFR CKD-EPI 102.9 (>60)
[2022-01-20] MEDS: fentaNYL Patch Check Q Shift NOTE FOLLOW UP SCH ×2 (06:53→18:56)
[2022-01-20] MEDS ORDERED: Magnesium Sulfate 2 gm BAG 2 GM/50 ML BAG IVPB ONE (07:15)
[2022-01-20] MEDS: fentaNYL PATCH 100 MCG/HR 1 PATCH TRANSDERM SCH (08:48)
[2022-01-20] MEDS: Calcium Citrate 200 mg TAB PO SCH ×3 (09:03→21:44)
[2022-01-20] MEDS ORDERED: Heparin 2 UNITS/ML 1000 mls 1,000 ML IV ONE (15:22)
[2022-01-21 05:39] LABS: Hematocrit 31 % (35-47); Hemoglobin 9.5 g/dL (12.0-16.0); Mean Corpuscular HGB Conc 30 g/dL (31-36); Mean Corpuscular Hemoglobin 24 pg (27-31); Mean Corpuscular Volume 80 fL (80-97); Mean Platelet Volume 7.1 fL (7.4-10.4); Platelet Count 587 10^3/uL (150-450); Red Blood Count 3.93 10^6 /uL (3.70-4.87); Red Cell Distribution Width 24 % (10-15); White Blood Count 10.2 10^3/uL (3.5-10.8)
[2022-01-21] MEDS: Enoxaparin 80 MG/0.8 ML SYR SUBCUT SCH (05:47)
[2022-01-21 05:57] LABS: Calcium 7.5 mg/dL (8.6-10.3); Magnesium 2.1 mg/dL (1.9-2.7); Potassium 3.9 mmol/L (3.5-5.0); eGFR CKD-EPI 91.9 (>60)
[2022-01-21] MEDS: fentaNYL Patch Check Q Shift NOTE FOLLOW UP SCH ×2 (07:01→18:50)
[2022-01-21] MEDS: Calcium Citrate 200 mg TAB PO SCH ×3 (09:17→20:33)
[2022-01-21] MEDS: Heparin DRIP 25,000 UNITS BAG 25,000 UNITS/500 ML BAG IV SCH (20:11)
[2022-01-21] MEDS: Heparin 5000 UNITS/ML 1 mL VIAL IV SCH (20:14)
[2022-01-22 05:14] LABS: Hematocrit 31 % (35-47); Hemoglobin 9.5 g/dL (12.0-16.0); Mean Corpuscular HGB Conc 31 g/dL (31-36); Mean Corpuscular Hemoglobin 24 pg (27-31); Mean Corpuscular Volume 80 fL (80-97); Mean Platelet Volume 6.7 fL (7.4-10.4); Platelet Count 548 10^3/uL (150-450); Red Cell Distribution Width 24 % (10-15); White Blood Count 10.7 10^3/uL (3.5-10.8)
[2022-01-22 05:35] LABS: Calcium 7.2 mg/dL (8.6-10.3); Magnesium 1.9 mg/dL (1.9-2.7); Potassium 3.6 mmol/L (3.5-5.0); eGFR CKD-EPI 101.2 (>60)
[2022-01-22] MEDS: fentaNYL Patch Check Q Shift NOTE FOLLOW UP SCH ×2 (07:07→19:24)
[2022-01-22] MEDS: Calcium Citrate 200 mg TAB PO SCH ×3 (10:08→21:55)
[2022-01-22] MEDS: Heparin DRIP 25,000 UNITS BAG 25,000 UNITS/500 ML BAG IV SCH (17:40)
[2022-01-23] MEDS: fentaNYL Patch Check Q Shift NOTE FOLLOW UP SCH ×2 (07:08→18:51)
[2022-01-23] MEDS: Calcium Citrate 200 mg TAB PO SCH ×3 (08:42→22:17)
[2022-01-23] MEDS: fentaNYL PATCH 100 MCG/HR 1 PATCH TRANSDERM SCH (10:28)
[2022-01-23] MEDS ORDERED: fentaNYL 100 mcg/2 ml 50 MCG/ML VIAL ONE (14:03)
[2022-01-23] MEDS ORDERED: Midazolam 2 mg/2 ml VIAL 1 mg/ml 2 ml VIAL (2 mg) ONE (14:03)
[2022-01-24] MEDS: Heparin DRIP 25,000 UNITS BAG 25,000 UNITS/500 ML BAG IV SCH (00:37)
[2022-01-24] MEDS: Heparin 5000 UNITS/ML 1 mL VIAL IV SCH (05:22)
[2022-01-24 05:26] LABS: ABS Basophils 0.1 10^3/ul (0-0.2); ABS Eosinophils 0.1 10^3/ul (0-0.6); ABS Lymphocytes 1.6 10^3/ul (1.0-4.8); ABS Monocytes 0.7 10^3/ul (0-0.8); ABS Neutrophils 10.7 10^3/ul (1.5-7.7); Eosinophil % 0.5 %; Hematocrit 27 % (35-47); Hemoglobin 8.5 g/dL (12.0-16.0); Lymphocyte % 12.4 %; Mean Corpuscular HGB Conc 31 g/dL (31-36); Mean Corpuscular Hemoglobin 25 pg (27-31); Mean Corpuscular Volume 81 fL (80-97); Mean Platelet Volume 6.1 fL (7.4-10.4); Nucleated Red Blood Cells % 0.1; Platelet Count 473 10^3/uL (150-450); Red Blood Count 3.39 10^6 /uL (3.70-4.87); Red Cell Distribution Width 24 % (10-15); White Blood Count 13.2 10^3/uL (3.5-10.8)
[2022-01-24 05:59] LABS: Calcium 7.1 mg/dL (8.6-10.3); Magnesium 1.7 mg/dL (1.9-2.7); Potassium 3.1 mmol/L (3.5-5.0); eGFR CKD-EPI 106.5 (>60)
[2022-01-24] MEDS ORDERED: Potassium Chlor 20 meq TAB.ER PO ONE ×2 (06:45→13:00)
[2022-01-24] MEDS ORDERED: Magnesium Sulfate 2 gm BAG 2 GM/50 ML BAG IVPB ONE (06:45)
[2022-01-24] MEDS: fentaNYL Patch Check Q Shift NOTE FOLLOW UP SCH (07:16)
[2022-01-24] MEDS: Calcium Citrate 200 mg TAB PO SCH ×2 (08:20→15:37)
[2022-01-24 11:15] VITALS: BP 111/78
[2022-01-25] MEDS ORDERED: fentaNYL PATCH 100 MCG/HR 1 PATCH TRANSDERM SCH (09:00)
== END 2022-01-24 16:50 | disposition home or self-care (01) | DRG 197 ==
LOC: EDHOLD 16:58 → ED 16:58 → SUATTDRO 01-11 02:50 → EDHOLD 01-11 05:02 → SSU 01-11 05:21 → SUATTDRO 01-13 18:30
PROVIDERS: ADMIT Internal Medicine; ATTEND Student in an Organized Health Care Education/Training Program

== ENCOUNTER 2022-05-25 16:45 | Inpatient (IN) ==
[2022-05-25 18:01] LABS: ABS Basophils 0.1 10^3/ul (0-0.2); ABS Monocytes 0.7 10^3/ul (0-0.8); ABS Neutrophils 10.2 10^3/ul (1.5-7.7); Eosinophil % 0.2 %; Hematocrit 36 % (35-47); Hemoglobin 11.6 g/dL (12.0-16.0); Mean Corpuscular HGB Conc 32 g/dL (31-36); Mean Corpuscular Hemoglobin 28 pg (27-31); Mean Corpuscular Volume 87 fL (80-97); Mean Platelet Volume 7.3 fL (7.4-10.4); Platelet Count 463 10^3/uL (150-450); Red Blood Count 4.14 10^6 /uL (3.70-4.87); Red Cell Distribution Width 15 % (10-15); White Blood Count 11.9 10^3/uL (3.5-10.8)
[2022-05-25 18:20] LABS: Albumin 2.8 g/dL (3.2-5.2); Albumin/Globulin Ratio 1.1 (1-3); C Reactive Protein 24.42 mg/L (<8.01); Calcium 8.5 mg/dL (8.6-10.3); Globulin 2.5 g/dL (2-4); Total Bilirubin 0.6 mg/dL (0.2-1.0); Total Protein 5.3 g/dL (6.4-8.9); eGFR CKD-EPI 36.9 (>60)
[2022-05-25 18:24] LABS: Potassium 4.5 mmol/L (3.5-5.0)
[2022-05-25] MEDS ORDERED: Vancomycin 1,000 MG in NS 0.9% 250 ml 250 ML IVPB ONE (20:44)
[2022-05-25] MEDS ORDERED: Lactated Ringers 1000 ml BAG 1,000 ML IV SCH (21:00)
[2022-05-25] MEDS ORDERED: Enoxaparin 40 MG/0.4 ML SYR SUBCUT SCH (21:00)
[2022-05-25] MEDS ORDERED: Vancomycin per Pharmacy 1 EA NOTE FOLLOW UP SCH (21:00)
[2022-05-25] MEDS ORDERED: cefTRIAXone 2 gm/50 mL D5W 2 GM/50 ML BAG IV ONE ×2 (21:30→23:00)
[2022-05-25] MEDS: fentaNYL PATCH 100 MCG/HR 1 PATCH TRANSDERM SCH (22:07)
[2022-05-25] MEDS ORDERED: Albuterol HFA INHALER 8 gm MDI INH PRN (22:43)
[2022-05-26] MEDS ORDERED: Vancomycin Random Level NOTE FOLLOW UP ONE (06:00)
[2022-05-26 06:23] LABS: Vancomycin Random 8.6 mcg/mL; eGFR CKD-EPI 44.9 (>60)
[2022-05-26] MEDS: fentaNYL Patch Check Q Shift NOTE FOLLOW UP SCH ×2 (07:05→18:52)
[2022-05-26 07:21] LABS: ABS Eosinophils 0.1 10^3/ul (0-0.6); ABS Lymphocytes 1.3 10^3/ul (1.0-4.8); ABS Monocytes 0.7 10^3/ul (0-0.8); ABS Neutrophils 4.4 10^3/ul (1.5-7.7); Eosinophil % 0.9 %; Hematocrit 30 % (35-47); Hemoglobin 9.8 g/dL (12.0-16.0); Lymphocyte % 20.5 %; Mean Corpuscular HGB Conc 33 g/dL (31-36); Mean Corpuscular Hemoglobin 29 pg (27-31); Mean Corpuscular Volume 88 fL (80-97); Mean Platelet Volume 7.4 fL (7.4-10.4); Platelet Count 356 10^3/uL (150-450); Red Cell Distribution Width 14 % (10-15); White Blood Count 6.4 10^3/uL (3.5-10.8)
[2022-05-26 07:31] LABS: Calcium 7.8 mg/dL (8.6-10.3); Magnesium 1.8 mg/dL (1.9-2.7); Potassium 3.7 mmol/L (3.5-5.0)
[2022-05-26] MEDS ORDERED: DULoxetine DR 60 mg CAP PO SCH (09:00)
[2022-05-26] MEDS ORDERED: Vancomycin 1000 MG in NS 0.9% 250 ML IVPB ONE (09:00)
[2022-05-26] MEDS: cefTRIAXone 2 gm/50 mL D5W 2 GM/50 ML BAG IV SCH (20:24)
[2022-05-26] MEDS: DULoxetine DR 60 mg CAP PO SCH (20:28)
[2022-05-27] MEDS ORDERED: Vancomycin Random Level NOTE FOLLOW UP SCH (06:00)
[2022-05-27 06:24] LABS: ABS Lymphocytes 1.4 10^3/ul (1.0-4.8); ABS Monocytes 0.7 10^3/ul (0-0.8); ABS Neutrophils 3.1 10^3/ul (1.5-7.7); Eosinophil % 0.8 %; Hematocrit 31 % (35-47); Hemoglobin 9.8 g/dL (12.0-16.0); Lymphocyte % 26.9 %; Mean Corpuscular HGB Conc 31 g/dL (31-36); Mean Corpuscular Hemoglobin 28 pg (27-31); Mean Corpuscular Volume 88 fL (80-97); Mean Platelet Volume 7.1 fL (7.4-10.4); Nucleated Red Blood Cells % 0.2; Platelet Count 397 10^3/uL (150-450); Red Blood Count 3.56 10^6 /uL (3.70-4.87); Red Cell Distribution Width 14 % (10-15); White Blood Count 5.3 10^3/uL (3.5-10.8)
[2022-05-27] MEDS: fentaNYL Patch Check Q Shift NOTE FOLLOW UP SCH ×2 (07:03→18:38)
[2022-05-27 07:04] LABS: Magnesium 1.7 mg/dL (1.9-2.7); Vancomycin Random 7.7 mcg/mL; eGFR CKD-EPI 92.8 (>60)
[2022-05-27] MEDS ORDERED: Midazolam 2 mg/2 ml VIAL 1 mg/ml 2 ml VIAL (2 mg) ONE (07:11)
[2022-05-27] MEDS ORDERED: Propofol 10 MG/ML 20 ML BTL ONE (07:11)
[2022-05-27] MEDS ORDERED: fentaNYL 100 mcg/2 ml 50 MCG/ML VIAL ONE ×2 (07:11→08:56)
[2022-05-27] MEDS ORDERED: Magnesium Sulfate 2 gm BAG 2 GM/50 ML BAG IVPB ONE (07:27)
[2022-05-27] MEDS ORDERED: Naloxone 0.4 mg VIAL 0.4 mg/ml 1 ml VIAL IV PRN (07:55)
[2022-05-27] MEDS ORDERED: Metoclopramide 5 MG/ML VIAL (10 mg) IV PRN (07:55)
[2022-05-27] MEDS ORDERED: Ondansetron 4 mg VIAL 2 MG/ML 2 ml VIAL IV PRN (07:55)
[2022-05-27] MEDS ORDERED: HYDROcodone/ACETAMIN 5/325 mg TAB PO PRN (07:55)
[2022-05-27] MEDS ORDERED: fentaNYL 100 mcg/2 ml 50 MCG/ML VIAL IV PRN (07:55)
[2022-05-27] MEDS: Vancomycin 1000 MG in NS 0.9% 250 ML IVPB SCH (15:06)
[2022-05-27] MEDS: Enoxaparin 40 MG/0.4 ML SYR SUBCUT SCH (15:11)
[2022-05-27] MEDS: cefTRIAXone 2 gm/50 mL D5W 2 GM/50 ML BAG IV SCH (21:08)
[2022-05-27] MEDS: DULoxetine DR 60 mg CAP PO SCH (21:11)
[2022-05-28] MEDS: Vancomycin 1000 MG in NS 0.9% 250 ML IVPB SCH ×2 (01:34→14:17)
[2022-05-28 06:21] LABS: ABS Eosinophils 0.1 10^3/ul (0-0.6); ABS Lymphocytes 1.6 10^3/ul (1.0-4.8); ABS Monocytes 0.6 10^3/ul (0-0.8); ABS Neutrophils 3.3 10^3/ul (1.5-7.7); Eosinophil % 0.9 %; Hematocrit 30 % (35-47); Hemoglobin 9.3 g/dL (12.0-16.0); Lymphocyte % 27.9 %; Mean Corpuscular HGB Conc 31 g/dL (31-36); Mean Corpuscular Hemoglobin 28 pg (27-31); Mean Corpuscular Volume 89 fL (80-97); Mean Platelet Volume 7.2 fL (7.4-10.4); Nucleated Red Blood Cells % 0.1; Platelet Count 356 10^3/uL (150-450); Red Blood Count 3.34 10^6 /uL (3.70-4.87); Red Cell Distribution Width 14 % (10-15); White Blood Count 5.6 10^3/uL (3.5-10.8)
[2022-05-28 06:37] LABS: Magnesium 1.9 mg/dL (1.9-2.7); Phosphorus 2.7 mg/dL (2.5-5.0); eGFR CKD-EPI 104.4 (>60)
[2022-05-28] MEDS: fentaNYL Patch Check Q Shift NOTE FOLLOW UP SCH ×2 (07:00→19:11)
[2022-05-28] MEDS ORDERED: Enoxaparin 40 MG/0.4 ML SYR SUBCUT SCH (09:00)
[2022-05-28] MEDS: Enoxaparin 40 MG/0.4 ML SYR SUBCUT SCH (14:15)
[2022-05-28] MEDS: fentaNYL PATCH 100 MCG/HR 1 PATCH TRANSDERM SCH (21:39)
[2022-05-28] MEDS: DULoxetine DR 60 mg CAP PO SCH (21:43)
[2022-05-28] MEDS: cefTRIAXone 2 gm/50 mL D5W 2 GM/50 ML BAG IV SCH (21:45)
[2022-05-29] MEDS: Vancomycin 1000 MG in NS 0.9% 250 ML IVPB SCH ×2 (01:34→14:10)
[2022-05-29] MEDS: fentaNYL Patch Check Q Shift NOTE FOLLOW UP SCH ×2 (06:55→19:01)
[2022-05-29] MEDS ORDERED: Magnesium Sulfate IV 1GM/100ML 1 GM/100 ML BAG IV ONE (06:59)
[2022-05-29 07:22] LABS: Calcium 7.9 mg/dL (8.6-10.3); Magnesium 1.7 mg/dL (1.9-2.7); Potassium 4.5 mmol/L (3.5-5.0); eGFR CKD-EPI 106.7 (>60)
[2022-05-29] MEDS ORDERED: Vancomycin Trough Check NOTE FOLLOW UP ONE (13:00)
[2022-05-29] MEDS: Enoxaparin 40 MG/0.4 ML SYR SUBCUT SCH (14:15)
[2022-05-29] MEDS: Multivitamins ADULT w/MIN LIQ 15 ML UDC PO SCH (16:40)
[2022-05-29] MEDS: cefTRIAXone 2 gm/50 mL D5W 2 GM/50 ML BAG IV SCH (21:36)
[2022-05-29] MEDS: DULoxetine DR 60 mg CAP PO SCH (21:43)
[2022-05-30] MEDS: Vancomycin 1000 MG in NS 0.9% 250 ML IVPB SCH ×4 (01:27→17:48)
[2022-05-30 06:47] LABS: Calcium 7.8 mg/dL (8.6-10.3); Magnesium 1.7 mg/dL (1.9-2.7); Potassium 3.5 mmol/L (3.5-5.0)
[2022-05-30] MEDS ORDERED: Magnesium Sulfate IV 3 GM in NS 0.9% 100 ml BAG 100 ML IVPB ONE (07:32)
[2022-05-30] MEDS: fentaNYL Patch Check Q Shift NOTE FOLLOW UP SCH ×2 (07:33→19:06)
[2022-05-30] MEDS: Multivitamins ADULT w/MIN LIQ 15 ML UDC PO SCH (09:07)
[2022-05-30] MEDS ORDERED: Potassium Chlor 20 meq TAB.ER PO ONE ×2 (10:00→14:00)
[2022-05-30] MEDS: Enoxaparin 40 MG/0.4 ML SYR SUBCUT SCH (13:56)
[2022-05-30] MEDS: cefTRIAXone 2 gm/50 mL D5W 2 GM/50 ML BAG IV SCH (21:50)
[2022-05-30] MEDS: DULoxetine DR 60 mg CAP PO SCH (21:55)
[2022-05-31] MEDS: Vancomycin 1000 MG in NS 0.9% 250 ML IVPB SCH ×2 (01:35→14:13)
[2022-05-31 05:32] LABS: ABS Basophils 0.1 10^3/ul (0-0.2); ABS Eosinophils 0.1 10^3/ul (0-0.6); ABS Lymphocytes 1.3 10^3/ul (1.0-4.8); ABS Monocytes 0.5 10^3/ul (0-0.8); ABS Neutrophils 4.4 10^3/ul (1.5-7.7); Eosinophil % 2.2 %; Hematocrit 31 % (35-47); Hemoglobin 9.6 g/dL (12.0-16.0); Lymphocyte % 19.9 %; Mean Corpuscular HGB Conc 31 g/dL (31-36); Mean Corpuscular Hemoglobin 28 pg (27-31); Mean Corpuscular Volume 90 fL (80-97); Nucleated Red Blood Cells % 0.1; Platelet Count 329 10^3/uL (150-450); Red Blood Count 3.47 10^6 /uL (3.70-4.87); Red Cell Distribution Width 14 % (10-15); White Blood Count 6.5 10^3/uL (3.5-10.8)
[2022-05-31 05:53] LABS: Calcium 7.8 mg/dL (8.6-10.3); Magnesium 1.8 mg/dL (1.9-2.7); Potassium 3.7 mmol/L (3.5-5.0); eGFR CKD-EPI 115.7 (>60)
[2022-05-31] MEDS: fentaNYL Patch Check Q Shift NOTE FOLLOW UP SCH ×2 (06:35→18:58)
[2022-05-31] MEDS: Multivitamins ADULT w/MIN LIQ 15 ML UDC PO SCH (09:58)
[2022-05-31] MEDS: Enoxaparin 40 MG/0.4 ML SYR SUBCUT SCH (14:08)
[2022-05-31] MEDS ORDERED: Potassium Chlor 20 meq TAB.ER PO ONE (17:20)
[2022-05-31] MEDS ORDERED: Magnesium Sulfate IV 3 GM in NS 0.9% 100 ml BAG 100 ML IVPB ONE (17:21)
[2022-05-31] MEDS: fentaNYL PATCH 100 MCG/HR 1 PATCH TRANSDERM SCH (21:41)
[2022-05-31] MEDS: cefTRIAXone 2 gm/50 mL D5W 2 GM/50 ML BAG IV SCH (21:49)
[2022-05-31] MEDS: DULoxetine DR 60 mg CAP PO SCH (21:50)
[2022-06-01] MEDS: Vancomycin 1000 MG in NS 0.9% 250 ML IVPB SCH ×2 (01:35→14:49)
[2022-06-01] MEDS: fentaNYL Patch Check Q Shift NOTE FOLLOW UP SCH ×2 (06:35→19:02)
[2022-06-01] MEDS: Multivitamins ADULT w/MIN LIQ 15 ML UDC PO SCH (08:22)
[2022-06-01] MEDS: Enoxaparin 40 MG/0.4 ML SYR SUBCUT SCH (14:48)
[2022-06-01] MEDS: DULoxetine DR 60 mg CAP PO SCH (21:13)
[2022-06-01] MEDS: cefTRIAXone 2 gm/50 mL D5W 2 GM/50 ML BAG IV SCH (21:20)
[2022-06-02] MEDS: Vancomycin 1000 MG in NS 0.9% 250 ML IVPB SCH ×2 (01:49→16:35)
[2022-06-02] MEDS: fentaNYL Patch Check Q Shift NOTE FOLLOW UP SCH (05:12)
[2022-06-02 05:25] LABS: Calcium 7.9 mg/dL (8.6-10.3); Magnesium 1.7 mg/dL (1.9-2.7)
[2022-06-02 05:30] LABS: eGFR CKD-EPI 110.7 (>60)
[2022-06-02] MEDS ORDERED: Magnesium Sulfate IV 3 GM in NS 0.9% 100 ml BAG 100 ML IVPB ONE (08:15)
[2022-06-02] MEDS: Multivitamins ADULT w/MIN LIQ 15 ML UDC PO SCH (09:29)
[2022-06-02] MEDS ORDERED: Vancomycin Trough Check NOTE FOLLOW UP ONE (13:00)
[2022-06-02 15:06] VITALS: BP 118/67
[2022-06-02] MEDS: Enoxaparin 40 MG/0.4 ML SYR SUBCUT SCH (15:14)
== END 2022-06-02 17:45 | disposition home or self-care (01) | DRG 317 ==
LOC: ED 16:45 → SUATTDRO 20:29 → EDHOLD 20:29 → MED 23:49
PROVIDERS: ADMIT Internal Medicine; ATTEND Internal Medicine